=== PATIENT | male | born 2000 | race Caucasian/White ===

== ENCOUNTER 2018-11-15 23:52 | Emergency (ER) | payer MEDICAID, OTHER ==
[~2018-11-15] VITALS: Ht 195.6 cm; Wt 79.4 kg
[2018-11-15 23:59] VITALS: BP 111/73
[2018-11-16] MEDS ORDERED: DEXAMETHASONE SOD PHOS 10MG/1ML VIAL INJ IM ONE (00:45)
[2018-11-16] MEDS ORDERED: cefTRIAXone SOD 1,000 MG VL IM ONE (00:45)
== END 2018-11-16 01:14 | disposition home or self-care (01) ==
LOC: ER 23:57
DX: J06.9 Acute upper respiratory infection, unspecified (principal)
CPT/HCPCS: 71046; 96372; 99283; J0696; J1100

== ENCOUNTER 2020-10-09 11:05 | Emergency (ER) | payer SELFPAY ==
[~2020-10-09] VITALS: Ht 193 cm; Wt 79.4 kg
[2020-10-09 11:17] VITALS: BP 144/82
[2020-10-09] MEDS ORDERED: KETOROLAC TROMETH 60MG/2ML VIAL IM ONE (12:00)
== END 2020-10-09 13:35 | disposition home or self-care (01) ==
LOC: ER 11:05
DX: S16.1XXA Strain of muscle, fascia and tendon at neck level, initial encounter (principal); M54.6 Pain in thoracic spine; V49.9XXA Car occupant (driver) (passenger) injured in unspecified traffic accident, initial encounter; Y93.89 Activity, other specified; Y92.89 Other specified places as the place of occurrence of the external cause; Y99.8 Other external cause status
CPT/HCPCS: 72040; 72070; 96372; 99284; J1885

== ENCOUNTER → 2021-12-16 | Emergency (ER) | payer MEDICAID, OTHER ==
[~2021-12-16] VITALS: Ht 195.6 cm; Wt 83.0 kg
[2021-12-16 10:20] VITALS: BP 142/86
== END | disposition home or self-care (01) ==
LOC: ER 09:53
DX: S46.911A Strain of unspecified muscle, fascia and tendon at shoulder and upper arm level, right arm, initial encounter (principal); S06.0X0A Concussion without loss of consciousness, initial encounter; V49.9XXA Car occupant (driver) (passenger) injured in unspecified traffic accident, initial encounter; Y93.89 Activity, other specified; Y92.410 Unspecified street and highway as the place of occurrence of the external cause; Y99.8 Other external cause status
CPT/HCPCS: 70450; 73000

== ENCOUNTER 2023-04-11 14:57 | Emergency (ER) | payer MEDICAID ==
[~2023-04-11] VITALS: Ht 193 cm; Wt 70.8 kg
[2023-04-11 15:27] LABS: Urine Bacteria NONE SEEN /hpf (None Seen); Urine Blood Negative /uL (Negative); Urine Clarity Clear (Clear); Urine Color Colorless (Yellow); Urine Protein, UAD Negative (Negative); Urine Specific Gravity 1.006 (1.001-1.035); Urine Urobilinogen Normal (Negative); Urine WBC <1 /hpf (0 - 3)
[2023-04-11 15:33] LABS: Basophils # (auto) 0 10 ^3/uL (0-0.2); Basophils % (auto) 0.4 % (0.0-2.0); Eosinophils # (auto) 0.1 10 ^3/uL (0-0.8); Eosinophils % (auto) 1.2 % (0.0-7.0); Hematocrit 46.5 % (41.0-53.0); Lymphocytes # (auto) 1.3 10 ^3/uL (0.4-5.4); Lymphocytes % (auto) 18.1 % (10.0-50.0); Mean Corpuscular Hemoglobin 31.3 pg (28.0-32.0); Mean Corpuscular Hgb Conc. 34.5 g/dL (32.0-36.0); Mean Corpuscular Volume 90.9 fL (80.0-100.0); Monocytes # (auto) 0.6 10 ^3/uL (0-1.3); Monocytes % (auto) 8.1 % (0.0-12.0); Neutrophils # (auto) 5.1 10 ^3/uL (1.6-8.6); Neutrophils % (auto) 72.2 % (37.0-80.0); Red Blood Cells 5.11 10^6/uL (4.5-5.90); Red Cell Distribution Width 13.7 % (11.8-14.3)
[2023-04-11 15:49] LABS: Albumin 4.5 g/dL (3.4-5.0); Calcium 9.2 mg/dL (8.5-10.1); Potassium 3.7 mmol/L (3.5-5.1)
[2023-04-11 15:55] LABS: BUN/Creatinine Ratio 10.9 (10.0-20.0); Bilirubin, Total 0.8 mg/dL (0.2-1.0); Total Protein 7.6 g/dL (6.4-8.2)
[2023-04-11 18:15] VITALS: BP 122/74; TEMP 98.8
[2023-04-11] MEDS ORDERED: ZOFR4T PO (18:38)
[2023-04-11] MEDS ORDERED: DICY10CA PO (18:38)
[2023-04-11] MEDS ORDERED: DICYCLOMINE HCL 10 MG CAP PO ONE (18:45)
[2023-04-11 19:07] VITALS: PULSE 75; RESP 16; O2SAT 100
== END 2023-04-11 19:14 | disposition home or self-care (01) ==
LOC: ER 14:57
DX: R10.31 Right lower quadrant pain (principal)
CPT/HCPCS: 36415; 74177; 80053; 81001; 85025; 99285; J0500; Q9967

== ENCOUNTER 2023-05-22 18:23 | Emergency (ER) | payer MEDICAID ==
[~2023-05-22] VITALS: Ht 193 cm; Wt 72.4 kg
[~2023-05-22 18:23] MED LIST: DICY10CA PO; ZOFR4T PO
[2023-05-22 19:02] LABS: Basophils # (auto) 0 10 ^3/uL (0-0.2); Basophils % (auto) 0.8 % (0.0-2.0); Eosinophils # (auto) 0.1 10 ^3/uL (0-0.8); Eosinophils % (auto) 2.4 % (0.0-7.0); Hematocrit 46.1 % (41.0-53.0); Hemoglobin 15.7 g/dL (13.5-17.5); Lymphocytes # (auto) 1.4 10 ^3/uL (0.4-5.4); Lymphocytes % (auto) 31.2 % (10.0-50.0); Mean Corpuscular Hemoglobin 31.7 pg (28.0-32.0); Mean Corpuscular Volume 93.3 fL (80.0-100.0); Monocytes # (auto) 0.4 10 ^3/uL (0-1.3); Monocytes % (auto) 8.8 % (0.0-12.0); Neutrophils # (auto) 2.6 10 ^3/uL (1.6-8.6); Neutrophils % (auto) 56.8 % (37.0-80.0); Nucleated Red Blood Cells % 0.2 %; Red Blood Cells 4.94 10^6/uL (4.5-5.90); Red Cell Distribution Width 13.9 % (11.8-14.3); White Blood Cell 4.6 10^3/uL (4.4-10.8)
[2023-05-22] MEDS ORDERED: DICYCLOMINE HCL 10 MG CAP PO ONE (19:15)
[2023-05-22 19:21] LABS: Alanine Aminotransferase 21 U/L (7-40); Albumin 4.6 g/dL (3.2-4.8); Alkaline Phosphatase 66 U/L (46-116); Anion Gap 2 (5-15); Aspartate Aminotransferase 14 U/L (13-40); Blood Urea Nitrogen 7 mg/dL (9-23); Calcium 9.5 mg/dL (8.7-10.4); Carbon Dioxide 29 mmol/L (20-30); Chloride 107 mmol/L (98-107); Glucose 96 mg/dL (74-106); Potassium 4.1 mmol/L (3.5-5.1); Sodium 138 mmol/L (136-145)
[2023-05-22 19:22] LABS: Bilirubin, Total 0.8 mg/dL (0.2-1.0)
[2023-05-22 19:22] LABS: Urine Bacteria NONE SEEN /hpf (None Seen); Urine Blood Negative /uL (Negative); Urine Clarity Clear (Clear); Urine Color Yellow (Yellow); Urine Mucus FEW (None Seen); Urine Protein, UAD 1+ (Negative); Urine Specific Gravity 1.032 (1.001-1.035); Urine WBC 1 /hpf (0 - 3); Urine pH 5.5 (5.0-8.0)
[2023-05-22] MEDS ORDERED: DICY10CA PO (19:33)
[2023-05-22 19:38] VITALS: BP 136/69; PULSE 88; RESP 16; TEMP 97.3; O2SAT 99
== END 2023-05-22 19:50 | disposition home or self-care (01) ==
LOC: ER 18:23
DX: R10.11 Right upper quadrant pain (principal); R10.31 Right lower quadrant pain; R11.0 Nausea
CPT/HCPCS: 36415; 80053; 81001; 85025; 99283; J0500

== ENCOUNTER 2023-07-05 20:38 | Emergency (ER) | payer MEDICAID ==
[~2023-07-05] VITALS: Ht 193 cm; Wt 75.0 kg
[2023-07-05 22:12] LABS: Basophils # (auto) 0 10 ^3/uL (0-0.2); Basophils % (auto) 0.4 % (0.0-2.0); Eosinophils # (auto) 0.1 10 ^3/uL (0-0.8); Eosinophils % (auto) 1.4 % (0.0-7.0); Hematocrit 49.2 % (41.0-53.0); Hemoglobin 16.7 g/dL (13.5-17.5); Lymphocytes % (auto) 22.4 % (10.0-50.0); Mean Corpuscular Hemoglobin 31.7 pg (28.0-32.0); Mean Corpuscular Volume 93.3 fL (80.0-100.0); Monocytes # (auto) 0.5 10 ^3/uL (0-1.3); Monocytes % (auto) 5.1 % (0.0-12.0); Neutrophils # (auto) 6.4 10 ^3/uL (1.6-8.6); Neutrophils % (auto) 70.7 % (37.0-80.0); Nucleated Red Blood Cells % 0.1 %; Red Blood Cells 5.28 10^6/uL (4.5-5.90); Red Cell Distribution Width 13.2 % (11.8-14.3)
[2023-07-05 22:27] LABS: Urine Bacteria NONE SEEN /hpf (None Seen); Urine Blood Negative /uL (Negative); Urine Clarity Clear (Clear); Urine Color Yellow (Yellow); Urine Mucus FEW (None Seen); Urine Protein, UAD Negative (Negative); Urine Specific Gravity 1.026 (1.001-1.035); Urine WBC 1 /hpf (0 - 3)
[2023-07-05 22:43] LABS: Alanine Aminotransferase 21 U/L (7-40); Albumin 5.4 g/dL (3.2-4.8); Alkaline Phosphatase 87 U/L (46-116); Anion Gap 6 (5-15); Aspartate Aminotransferase 16 U/L (13-40); BUN/Creatinine Ratio 7.1 (10.0-20.0); Bilirubin, Total 0.7 mg/dL (0.2-1.0); Blood Urea Nitrogen 8 mg/dL (9-23); Calcium 9.9 mg/dL (8.7-10.4); Carbon Dioxide 28 mmol/L (20-30); Chloride 104 mmol/L (98-107); Glucose 95 mg/dL (74-106); Lipase 52 U/L (12-53); Magnesium 2.2 mg/dL (1.6-2.6); Potassium 3.8 mmol/L (3.5-5.1); Sodium 138 mmol/L (136-145); Total Protein 7.9 g/dL (5.7-8.2)
[2023-07-05] MEDS ORDERED: KETOROLAC TROMETH 60MG/2ML VIAL IM ONE (23:00)
[2023-07-06] MEDS ORDERED: DICY10CA PO (01:08)
[2023-07-06 01:20] VITALS: BP 123/69; TEMP 97.8
[2023-07-06 01:24] VITALS: PULSE 64; RESP 18; O2SAT 98
== END 2023-07-06 01:25 | disposition home or self-care (01) ==
LOC: ER 20:38
DX: R10.84 Generalized abdominal pain (principal); Z79.899 Other long term (current) drug therapy
CPT/HCPCS: 36415; 74176; 80053; 81001; 83605; 83690; 83735; 85025; 96372; 99285; J1885

== ENCOUNTER → 2023-07-25 | Outpatient (CLI) | payer MEDICAID ==
[2023-07-25 14:31] LABS: Basophils # (auto) 0 10 ^3/uL (0-0.2); Basophils % (auto) 0.6 % (0.0-2.0); Eosinophils # (auto) 0.2 10 ^3/uL (0-0.8); Eosinophils % (auto) 4.1 % (0.0-7.0); Hematocrit 46.1 % (41.0-53.0); Hemoglobin 15.8 g/dL (13.5-17.5); Lymphocytes # (auto) 1.5 10 ^3/uL (0.4-5.4); Lymphocytes % (auto) 30.4 % (10.0-50.0); Mean Corpuscular Hemoglobin 31.8 pg (28.0-32.0); Mean Corpuscular Hgb Conc. 34.2 g/dL (32.0-36.0); Monocytes # (auto) 0.4 10 ^3/uL (0-1.3); Monocytes % (auto) 7.7 % (0.0-12.0); Neutrophils # (auto) 2.9 10 ^3/uL (1.6-8.6); Neutrophils % (auto) 57.2 % (37.0-80.0); Nucleated Red Blood Cells % 0.1 %; Red Blood Cells 4.96 10^6/uL (4.5-5.90); Red Cell Distribution Width 13.1 % (11.8-14.3); White Blood Cell 5.1 10^3/uL (4.4-10.8)
[2023-07-25 15:23] LABS: Alanine Aminotransferase 22 U/L (7-40); Albumin 4.8 g/dL (3.2-4.8); Alkaline Phosphatase 73 U/L (46-116); Anion Gap 5 (5-15); Aspartate Aminotransferase 14 U/L (13-40); BUN/Creatinine Ratio 5.7 (10.0-20.0); Bilirubin, Total 0.6 mg/dL (0.2-1.0); Blood Urea Nitrogen 6 mg/dL (9-23); Calcium 9.8 mg/dL (8.5-10.1); Carbon Dioxide 30 mmol/L (20-30); Chloride 105 mmol/L (98-107); Cholesterol 141 mg/dL (< 200); Glucose 93 mg/dL (74-106); HDL Cholesterol 52 mg/dL (40-59); LDL Cholesterol 84 mg/dL (< 100); Potassium 4.2 mmol/L (3.5-5.1); Sodium 140 mmol/L (136-145); Triglycerides 44 mg/dL (< 150)
[2023-07-25 15:27] LABS: Urine Bacteria NONE SEEN /hpf (None Seen); Urine Blood Negative /uL (Negative); Urine Clarity Clear (Clear); Urine Color Yellow (Yellow); Urine Mucus FEW (None Seen); Urine Protein, UAD TRACE (Negative); Urine Specific Gravity 1.026 (1.001-1.035); Urine Urobilinogen Normal (Negative); Urine WBC 1 /hpf (0 - 3)
[2023-07-25 15:49] LABS: Lipase 30 U/L (12-53)
== END | disposition home or self-care (01) ==
LOC: LAB 14:09
PROVIDERS: ATTEND Internal Medicine
DX: Z00.00 Encounter for general adult medical examination without abnormal findings (principal); R19.7 Diarrhea, unspecified; J31.2 Chronic pharyngitis
CPT/HCPCS: 36415; 80053; 80061; 81001; 83690; 84443; 85025; 86308

== ENCOUNTER 2023-08-24 18:34 | Emergency (ER) | payer MEDICAID ==
[~2023-08-24] VITALS: Ht 193 cm; Wt 73.3 kg
[2023-08-24 20:01] LABS: Urine Bacteria NONE SEEN /hpf (None Seen); Urine Blood Negative /uL (Negative); Urine Clarity Clear (Clear); Urine Color Yellow (Yellow); Urine Mucus FEW (None Seen); Urine Protein, UAD 1+ (Negative); Urine Specific Gravity 1.031 (1.001-1.035); Urine WBC 1 /hpf (0 - 3)
[2023-08-24 20:04] LABS: Basophils # (auto) 0 10 ^3/uL (0-0.2); Basophils % (auto) 0.3 % (0.0-2.0); Eosinophils # (auto) 0.1 10 ^3/uL (0-0.8); Eosinophils % (auto) 0.7 % (0.0-7.0); Hematocrit 46.1 % (41.0-53.0); Lymphocytes # (auto) 1.7 10 ^3/uL (0.4-5.4); Lymphocytes % (auto) 21.3 % (10.0-50.0); Mean Corpuscular Hemoglobin 31.6 pg (28.0-32.0); Mean Corpuscular Hgb Conc. 34.8 g/dL (32.0-36.0); Mean Corpuscular Volume 90.6 fL (80.0-100.0); Monocytes # (auto) 0.6 10 ^3/uL (0-1.3); Monocytes % (auto) 7.8 % (0.0-12.0); Neutrophils # (auto) 5.6 10 ^3/uL (1.6-8.6); Neutrophils % (auto) 69.9 % (37.0-80.0); Nucleated Red Blood Cells % 0.2 %; Red Blood Cells 5.08 10^6/uL (4.5-5.90)
[2023-08-24 20:20] LABS: Alanine Aminotransferase 35 U/L (7-40); Albumin 5.1 g/dL (3.2-4.8); Alkaline Phosphatase 69 U/L (46-116); Anion Gap 10 (5-15); Aspartate Aminotransferase 24 U/L (13-40); BUN/Creatinine Ratio 8.9 (10.0-20.0); Blood Urea Nitrogen 9 mg/dL (9-23); Calcium 9.7 mg/dL (8.7-10.4); Carbon Dioxide 19 mmol/L (20-30); Chloride 109 mmol/L (98-107); Glucose 107 mg/dL (74-106); Lipase 39 U/L (12-53); Potassium 3.9 mmol/L (3.5-5.1); Sodium 138 mmol/L (136-145)
[2023-08-24 20:21] LABS: Bilirubin, Total 0.7 mg/dL (0.2-1.0); Total Protein 7.6 g/dL (5.7-8.2)
[2023-08-24] MEDS ORDERED: DICY10CA PO (20:33)
[2023-08-24 20:59] VITALS: BP 125/61; PULSE 77; RESP 16; TEMP 98.6; O2SAT 99
== END 2023-08-24 21:02 | disposition home or self-care (01) ==
LOC: ER 18:34
DX: R10.13 Epigastric pain (principal)
CPT/HCPCS: 36415; 80053; 81001; 83690; 85025

== ENCOUNTER 2024-02-16 10:52 | Emergency (ER) | payer MEDICAID ==
[~2024-02-16] VITALS: Ht 193 cm; Wt 74.1 kg
[2024-02-16] MEDS ORDERED: RABIES VACCINE (PCEC)/PF 2.5 UNITS IM ONE (12:30)
[2024-02-16] MEDS: RABIES VACCINE (PCEC)/PF 2.5 UNITS IM ONE (12:45)
[2024-02-16 13:00] VITALS: BP 112/67; PULSE 72; RESP 20; TEMP 98.4; O2SAT 99
== END 2024-02-16 13:30 | disposition home or self-care (01) ==
LOC: ER 10:52
DX: S61.551A Open bite of right wrist, initial encounter (principal); Z23 Encounter for immunization; Z79.899 Other long term (current) drug therapy; W55.01XA Bitten by cat, initial encounter; Y93.89 Activity, other specified; Y92.89 Other specified places as the place of occurrence of the external cause; Y99.8 Other external cause status
CPT/HCPCS: 90471; 90675

== ENCOUNTER 2024-02-17 09:27 | Emergency (ER) | payer MEDICAID ==
[~2024-02-17] VITALS: Ht 193 cm; Wt 72.7 kg
[2024-02-17 12:41] LABS: Urine Bacteria None Seen /hpf (None Seen)
[2024-02-17 13:05] LABS: Amphetamine Screen, Urine Neg (NEGATIVE); Barbiturate Scree,Urine Neg (NEGATIVE); Benzodiazephine Screen, Urine Neg (NEGATIVE); Cannabinoid Screen, Urine Pos (NEGATIVE); Cocaine Screen, Urine Neg (NEGATIVE); Opiate Scree,Urine Neg (NEGATIVE); Phencyclidine Screen, Urine Neg (NEGATIVE)
[2024-02-17 13:12] LABS: Urine Blood Negative /uL (Negative); Urine Clarity Clear (Clear); Urine Color Yellow (Yellow); Urine Mucus FEW (None Seen); Urine Protein, UAD 1+ (Negative); Urine Specific Gravity 1.038 (1.001-1.035); Urine Urobilinogen 3 mg/dL (Negative); Urine WBC 1 /hpf (0 - 3)
[2024-02-17 14:07] LABS: Basophils # (auto) 0 10 ^3/uL (0-0.2); Basophils % (auto) 0.3 % (0.0-2.0); Eosinophils # (auto) 0 10 ^3/uL (0-0.8); Eosinophils % (auto) 0.1 % (0.0-7.0); Hematocrit 46.5 % (41.0-53.0); Hemoglobin 16.1 g/dL (13.5-17.5); Lymphocytes # (auto) 1.1 10 ^3/uL (0.4-5.4); Lymphocytes % (auto) 12.4 % (10.0-50.0); Mean Corpuscular Hgb Conc. 34.7 g/dL (32.0-36.0); Mean Corpuscular Volume 92.3 fL (80.0-100.0); Monocytes # (auto) 0.5 10 ^3/uL (0-1.3); Neutrophils % (auto) 81.2 % (37.0-80.0); Nucleated Red Blood Cells % 0.2 %; Red Blood Cells 5.04 10^6/uL (4.5-5.90); White Blood Cell 8.6 10^3/uL (4.4-10.8)
[2024-02-17 14:23] LABS: INR 1.09 (0.9-1.15); Partial Thromboplastin Time 28.8 SEC (24.5-34.5); Prothrombin Time 11.5 sec (9.3-11.8)
[2024-02-17 14:48] LABS: Alanine Aminotransferase 13 U/L (7-40); Alkaline Phosphatase 76 U/L (46-116); Anion Gap 9 (5-15); Aspartate Aminotransferase 10 U/L (13-40); BUN/Creatinine Ratio 8.6 (10.0-20.0); Blood Urea Nitrogen 9 mg/dL (9-23); Calcium 10.4 mg/dL (8.7-10.4); Carbon Dioxide 24 mmol/L (20-30); Chloride 106 mmol/L (98-107); Glucose 97 mg/dL (74-106); Lipase 38 U/L (12-53); Potassium 3.7 mmol/L (3.5-5.1); Sodium 139 mmol/L (136-145)
[2024-02-17 14:49] LABS: Bilirubin, Total 0.9 mg/dL (0.2-1.0); Total Protein 7.9 g/dL (5.7-8.2)
[2024-02-17] MEDS: ONDANSETRON ODT 4 MG TAB PO ONE (15:55)
[2024-02-17] MEDS: ACETAMINOPHEN 325 MG TAB PO ONE (15:56)
[2024-02-17] MEDS: KETOROLAC TROMETH 60MG/2ML VIAL IM ONE (15:57)
[2024-02-17 16:01] VITALS: BP 74/95; PULSE 96; RESP 17; TEMP 98; O2SAT 99
== END 2024-02-17 16:04 | disposition home or self-care (01) ==
LOC: ER 09:27
DX: R42 Dizziness and giddiness (principal); T50.B95A Adverse effect of other viral vaccines, initial encounter; Z79.899 Other long term (current) drug therapy; Y92.89 Other specified places as the place of occurrence of the external cause
CPT/HCPCS: 36415; 74176; 80053; 80307; 81001; 83690; 85025; 85610; 85730; 96372; 99285; J1885; Q0162

== ENCOUNTER 2024-02-20 11:40 | Emergency (ER) | payer MEDICAID ==
[~2024-02-20] VITALS: Ht 193 cm; Wt 71.7 kg
[2024-02-20 13:10] VITALS: BP 127/86; PULSE 94; RESP 14; TEMP 98.3; O2SAT 99
[2024-02-20] MEDS: RABIES VACCINE (PCEC)/PF 2.5 UNITS IM ONE (13:43)
== END 2024-02-20 13:37 | disposition home or self-care (01) ==
LOC: ER 11:40
DX: S61.531D Puncture wound without foreign body of right wrist, subsequent encounter (principal); F41.9 Anxiety disorder, unspecified; Z23 Encounter for immunization; Z79.899 Other long term (current) drug therapy; X58.XXXD Exposure to other specified factors, subsequent encounter
CPT/HCPCS: 90471; 90675

== ENCOUNTER 2024-03-02 13:48 | Emergency (ER) | payer MEDICAID ==
[~2024-03-02] VITALS: Ht 193 cm; Wt 68.9 kg
[2024-03-02 15:00] LABS: Basophils # (auto) 0 10 ^3/uL (0-0.2); Basophils % (auto) 0.5 % (0.0-2.0); Eosinophils # (auto) 0 10 ^3/uL (0-0.8); Eosinophils % (auto) 0.8 % (0.0-7.0); Hematocrit 46.9 % (41.0-53.0); Hemoglobin 16.4 g/dL (13.5-17.5); Lymphocytes % (auto) 21.4 % (10.0-50.0); Mean Corpuscular Hemoglobin 31.7 pg (28.0-32.0); Mean Corpuscular Hgb Conc. 34.9 g/dL (32.0-36.0); Mean Corpuscular Volume 90.9 fL (80.0-100.0); Monocytes # (auto) 0.4 10 ^3/uL (0-1.3); Monocytes % (auto) 8.8 % (0.0-12.0); Neutrophils # (auto) 3.3 10 ^3/uL (1.6-8.6); Neutrophils % (auto) 68.5 % (37.0-80.0); Nucleated Red Blood Cells % 0.2 %; Red Blood Cells 5.16 10^6/uL (4.5-5.90); Red Cell Distribution Width 13.1 % (11.8-14.3); White Blood Cell 4.8 10^3/uL (4.4-10.8)
[2024-03-02 15:37] LABS: Alanine Aminotransferase 14 U/L (7-40); Alkaline Phosphatase 69 U/L (46-116); Anion Gap 10 (5-15); Aspartate Aminotransferase 9 U/L (13-40); BUN/Creatinine Ratio 9.7 (10.0-20.0); Blood Urea Nitrogen 11 mg/dL (9-23); Calcium 10.9 mg/dL (8.7-10.4); Carbon Dioxide 22 mmol/L (20-30); Chloride 108 mmol/L (98-107); Glucose 108 mg/dL (74-106); Potassium 3.7 mmol/L (3.5-5.1); Sodium 140 mmol/L (136-145)
[2024-03-02 15:38] LABS: Total Protein 7.4 g/dL (5.7-8.2)
[2024-03-02 15:54] LABS: Bilirubin, Total 0.9 mg/dL (0.2-1.0)
[2024-03-02 15:58] LABS: Magnesium 2.1 mg/dL (1.6-2.6)
[2024-03-02 16:02] LABS: Urine Bacteria None Seen /hpf (None Seen)
[2024-03-02 16:04] LABS: Free T3 3.48 pg/mL (2.3-4.2); Free T4 (Free Thyroxine) 1.46 ng/dL (0.89-1.76)
[2024-03-02 16:25] LABS: Amphetamine Screen, Urine Neg (NEGATIVE); Barbiturate Scree,Urine Neg (NEGATIVE); Benzodiazephine Screen, Urine Neg (NEGATIVE); Cocaine Screen, Urine Neg (NEGATIVE); Opiate Scree,Urine Neg (NEGATIVE)
[2024-03-02 16:26] LABS: Cannabinoid Screen, Urine Pos (NEGATIVE); Phencyclidine Screen, Urine Neg (NEGATIVE)
[2024-03-02 16:29] LABS: Urine Blood Negative /uL (Negative); Urine Clarity Clear (Clear); Urine Color Yellow (Yellow); Urine Mucus FEW (None Seen); Urine Protein, UAD 1+ (Negative); Urine Specific Gravity 1.035 (1.001-1.035); Urine Urobilinogen Normal (Negative); Urine WBC 1 /hpf (0 - 3)
[2024-03-02] MEDS: SODIUM CHLORIDE 0.9% 1,000 ML IVB ONE (16:45)
[2024-03-02 18:38] VITALS: BP 150/78; PULSE 79; RESP 15; TEMP 97.6; O2SAT 99
== END 2024-03-02 18:39 | disposition home or self-care (01) ==
LOC: ER 13:48
DX: E86.0 Dehydration (principal); R07.9 Chest pain, unspecified; F41.9 Anxiety disorder, unspecified; F17.210 Nicotine dependence, cigarettes, uncomplicated; F12.10 Cannabis abuse, uncomplicated
CPT/HCPCS: 36415; 71046; 80053; 80307; 81001; 82550; 83036; 83605; 83735; 84439; 84443; 84481; 85025; 86703; 96360; 99284; J7030

== ENCOUNTER 2024-03-13 23:27 | Emergency (ER) | payer MEDICAID ==
[~2024-03-13] VITALS: Ht 193 cm; Wt 70.3 kg
[2024-03-14 01:58] VITALS: BP 125/79; PULSE 83; RESP 17; TEMP 97.9; O2SAT 99
[2024-03-14] MEDS: KETOROLAC TROMETH 30 MG/ML 1ML VIAL IM ONE (01:59)
== END 2024-03-14 02:04 | disposition home or self-care (01) ==
LOC: ER 23:27
DX: S46.812A Strain of other muscles, fascia and tendons at shoulder and upper arm level, left arm, initial encounter (principal); S46.811A Strain of other muscles, fascia and tendons at shoulder and upper arm level, right arm, initial encounter; M25.511 Pain in right shoulder; M25.512 Pain in left shoulder; F41.9 Anxiety disorder, unspecified; F17.210 Nicotine dependence, cigarettes, uncomplicated; F15.90 Other stimulant use, unspecified, uncomplicated; Z79.899 Other long term (current) drug therapy; X58.XXXA Exposure to other specified factors, initial encounter; Y93.89 Activity, other specified; Y92.89 Other specified places as the place of occurrence of the external cause; Y99.8 Other external cause status
CPT/HCPCS: 96372; 99283; J1885

== ENCOUNTER → 2024-03-13 | Outpatient (CLI) | payer MEDICAID ==
[2024-03-13 10:22] LABS: Basophils # (auto) 0 10 ^3/uL (0-0.2); Basophils % (auto) 0.7 % (0.0-2.0); Eosinophils # (auto) 0.1 10 ^3/uL (0-0.8); Eosinophils % (auto) 2.8 % (0.0-7.0); Hematocrit 44.4 % (41.0-53.0); Hemoglobin 15.5 g/dL (13.5-17.5); Lymphocytes # (auto) 1.6 10 ^3/uL (0.4-5.4); Lymphocytes % (auto) 31.7 % (10.0-50.0); Mean Corpuscular Hemoglobin 31.9 pg (28.0-32.0); Mean Corpuscular Hgb Conc. 34.9 g/dL (32.0-36.0); Mean Corpuscular Volume 91.4 fL (80.0-100.0); Monocytes # (auto) 0.5 10 ^3/uL (0-1.3); Monocytes % (auto) 10.1 % (0.0-12.0); Neutrophils # (auto) 2.8 10 ^3/uL (1.6-8.6); Neutrophils % (auto) 54.7 % (37.0-80.0); Nucleated Red Blood Cells % 0.2 %; Red Blood Cells 4.86 10^6/uL (4.5-5.90); Red Cell Distribution Width 13.1 % (11.8-14.3); White Blood Cell 5.1 10^3/uL (4.4-10.8)
[2024-03-13 10:40] LABS: Alanine Aminotransferase 17 U/L (7-40); Albumin 4.7 g/dL (3.2-4.8); Alkaline Phosphatase 63 U/L (46-116); Amylase 60 U/L (30-118); Anion Gap 5 (5-15); Aspartate Aminotransferase 8 U/L (13-40); Bilirubin, Total 0.5 mg/dL (0.2-1.0); Blood Urea Nitrogen 9 mg/dL (9-23); Calcium 9.9 mg/dL (8.7-10.4); Carbon Dioxide 28 mmol/L (20-30); Chloride 107 mmol/L (98-107); Glucose 97 mg/dL (74-106); Lipase 42 U/L (12-53); Potassium 3.5 mmol/L (3.5-5.1); Sodium 140 mmol/L (136-145); Total Protein 6.9 g/dL (5.7-8.2)
[2024-03-13 10:53] LABS: Erythrocyte Sedimentation Rate 2 mm/hr (0-20)
== END | disposition home or self-care (01) ==
LOC: LAB 09:34
PROVIDERS: ATTEND Internal Medicine
DX: R10.9 Unspecified abdominal pain (principal)
CPT/HCPCS: 36415; 80053; 82150; 83690; 85025; 85652

== ENCOUNTER → 2024-03-31 | Outpatient (CLI) | payer MEDICAID ==
[2024-03-31 15:13] LABS: Urine Blood Negative /uL (Negative); Urine Clarity Clear (Clear); Urine Color Light-Yellow (Yellow); Urine Protein, UAD Negative (Negative); Urine Specific Gravity 1.024 (1.001-1.035); Urine Urobilinogen Normal (Negative); Urine pH 5.5 (5.0-9.0)
== END | disposition home or self-care (01) ==
LOC: LAB 14:37
PROVIDERS: ATTEND Internal Medicine
DX: R10.9 Unspecified abdominal pain (principal); N39.0 Urinary tract infection, site not specified
CPT/HCPCS: 81003